=== PATIENT | male | born 2000 | race Hispanic/Latino ===

== ENCOUNTER 2019-11-03 03:40 | Emergency (ER) | payer OTHER, SELFPAY ==
[2019-11-03] MEDS ORDERED: Morphine 4 MG/ML VIAL ONE (03:54)
--- NOTE | 2019-11-03 07:41 | RAD ---
EXAM: 4 views of the right elbow HISTORY: Elbow pain with possible elbow fracture dislocation COMPARISON: 11/03/2019 at 12:40 AM FINDINGS: No elbow effusion is seen. There is no evidence of acute fracture or dislocation. No signi ficant degenerative changes are seen. Moderate posterior soft tissue swelling is present. IMPRESSION: No evidence of acute osseous abnormality.
== END 2019-11-03 04:30 | disposition home or self-care (01) ==
LOC: ERS 03:40
DX: M25.521 Pain in right elbow (principal); W18.30XA Fall on same level, unspecified, initial encounter
CPT/HCPCS: 96374; J2270